=== PATIENT | female | born 1950 | race African-American/Black ===

== ENCOUNTER 2017-10-14 11:04 | Outpatient (CLI) | payer BC | END 2017-10-14 11:05 | disposition home or self-care (01) | LOC: BICRAD 11:04 | PROVIDERS: ATTEND Internal Medicine Endocrinology, Diabetes & Metabolism | DX: M79.662 Pain in left lower leg (principal); M79.661 Pain in right lower leg; W19.XXXA Unspecified fall, initial encounter ==

== ENCOUNTER 2017-10-19 19:00 | Outpatient (CLI) | payer BC | END 2017-10-19 19:01 | disposition home or self-care (01) | LOC: SLEEPLAB 19:00 | PROVIDERS: ATTEND Family Medicine | DX: G47.33 Obstructive sleep apnea (adult) (pediatric) (principal); I10 Essential (primary) hypertension; E11.9 Type 2 diabetes mellitus without complications | CPT/HCPCS: 95806 ==

== ENCOUNTER 2018-04-20 10:53 | Outpatient (CLI) | payer MEDICARE | END 2018-04-20 10:54 | disposition home or self-care (01) | LOC: BICMAMMO 10:53 | PROVIDERS: ATTEND Specialist | DX: N63.10 Unspecified lump in the right breast, unspecified quadrant (principal); N64.59 Other signs and symptoms in breast; N64.4 Mastodynia; R92.1 Mammographic calcification found on diagnostic imaging of breast | CPT/HCPCS: 19083; 76642; 77065; 88305; G0279 ==

== ENCOUNTER 2019-06-01 09:51 | Outpatient (CLI) | payer MEDICARE ==
--- NOTE | 2019-06-01 11:44 | BD ---
DEXA BONE DENSITY STUDY: Date: 06/01/19 HISTORY: Postmenopausal. FINDINGS: Lumbar Spine: BMD (g/cm2) L1 0.789 T-Score: -1.8 L2 0.889 T-Score: -1.3 L3 0.934 T-Score: -1.4 L4 0.936 T-Score: -1.1 Total 0.894 T-Score: -1.4 Left Femoral Neck: 0.698 T-Score: -1.4 Total Femur: 0.821 T-Score: -1.0 IMPRESSION: 1. Osteopenia of the lumbar spine and left femoral neck. 2. 10 year fracture risk for major osteoporotic fracture is 4.2% and for a hip fracture is 0.5%. The se fracture probabilities are calculated for an untreated patient. POS: [facility]
== END 2019-06-01 09:52 | disposition home or self-care (01) ==
LOC: BICMAMMO 09:51
PROVIDERS: ATTEND Family Medicine
DX: M81.0 Age-related osteoporosis without current pathological fracture (principal); M85.89 Other specified disorders of bone density and structure, multiple sites
CPT/HCPCS: 77080

== ENCOUNTER 2021-04-11 18:15 | Emergency (ER) | payer MEDICARE ==
[2021-04-11] MEDS ORDERED: Carvedilol 25 MG TAB PO SCH (21:00)
[2021-04-11] MEDS ORDERED: Amlodipine 5 MG TAB ONE (21:45)
== END 2021-04-11 22:15 | disposition home or self-care (01) ==
LOC: ERS 18:15
DX: S60.032A Contusion of left middle finger without damage to nail, initial encounter (principal); E11.9 Type 2 diabetes mellitus without complications; I10 Essential (primary) hypertension; Z79.84 Long term (current) use of oral hypoglycemic drugs; Z79.899 Other long term (current) drug therapy; W57.XXXA Bitten or stung by nonvenomous insect and other nonvenomous arthropods, initial encounter; M79.89 Other specified soft tissue disorders

== ENCOUNTER 2021-11-25 13:16 | Outpatient (CLI) | payer MEDICARE | END 2021-11-25 13:17 | disposition home or self-care (01) | LOC: BICMAMMO 13:16 | PROVIDERS: ATTEND Family Medicine | DX: Z12.31 Encounter for screening mammogram for malignant neoplasm of breast (principal); Z85.3 Personal history of malignant neoplasm of breast | CPT/HCPCS: 77063; 77067 ==

== ENCOUNTER 2022-10-13 13:24 | Outpatient (CLI) | payer MEDICARE ==
[~2022-10-13 13:24] MED LIST: Iopamidol 370 76% 100 ML VIAL ONE
== END 2022-10-13 13:25 | disposition home or self-care (01) ==
LOC: BICCT 13:24
PROVIDERS: ATTEND Family Medicine
DX: R10.32 Left lower quadrant pain (principal); K57.30 Diverticulosis of large intestine without perforation or abscess without bleeding; N28.89 Other specified disorders of kidney and ureter; N32.89 Other specified disorders of bladder
CPT/HCPCS: 74177

== ENCOUNTER 2023-06-11 14:35 | Outpatient (CLI) | payer MEDICARE | END 2023-06-11 14:36 | disposition home or self-care (01) | LOC: BICMRI 14:35 | PROVIDERS: ATTEND Family Medicine | DX: M51.16 Intervertebral disc disorders with radiculopathy, lumbar region (principal) | CPT/HCPCS: 72148 ==

== ENCOUNTER 2023-12-01 14:38 | Outpatient (CLI) | payer MEDICARE | END 2023-12-01 14:39 | disposition home or self-care (01) | LOC: BICMAMMO 14:38 | PROVIDERS: ATTEND Family Medicine | DX: Z12.31 Encounter for screening mammogram for malignant neoplasm of breast (principal); Z91.89 Other specified personal risk factors, not elsewhere classified | CPT/HCPCS: 77063; 77067 ==

== ENCOUNTER 2024-10-19 17:54 | Inpatient (IN) | payer MEDICARE ==
[2024-10-19] MEDS ORDERED: Ondansetron PF 4 MG/2 ML Vial ONE (18:31)
[2024-10-19 18:37] LABS: #Basophils 0.06 10x3/uL (0.0-0.2); %Basophils 0.8 % (0.0-1.0); %Lymphocytes 31.4 % (21.0-51.0); %Monocytes 7.5 % (0.0-10.0); %Neutrophils 58.9 % (42.0-75.0); Hematocrit 37.5 % (36.0-47.0); Mean Corpuscular Hemoglobin 25.5 pg (27.0-31.0); Mean Corpuscular Volume 79.6 fL (78.0-98.0); Mean Platelet Volume 9.4 fL (7.4-10.4); Platelet Count 359 10x3/uL (130-400); RBC Distribution Width 13.9 % (11.5-14.5); Red Blood Cell (RBC) Count 4.71 mill/uL (4.20-5.40)
[2024-10-19 18:52] LABS: ALT (SGPT) 8 U/L (8-55); AST (SGOT) 14 U/L (5-34); Albumin 3.6 g/dL (3.4-4.8); Alkaline Phosphatase 129 U/L (40-110); Anion Gap 13 mmol/L (10-20); BUN (Urea Nitrogen) 19 mg/dL (9.8-20.1); Bilirubin, Total 0.5 mg/dL (0.2-1.2); Calc. Creatinine Clearance 0 mL/min (70-130); Calcium 9.4 mg/dL (7.8-10.44); Carbon Dioxide 23 mmol/L (23-31); Chloride 105 mmol/L (98-107); Estimated GFR 36; Globulin 3.7 g/dL (2.4-3.5); Glucose 130 mg/dL (83-110); Potassium 4.2 mmol/L (3.5-5.1); Protein, Total 7.3 g/dL (5.8-8.1); Sodium 137 mmol/L (136-145)
[2024-10-19 18:55] LABS: Troponin I Less than 0.010 ng/mL (< 0.028)
[2024-10-19] MEDS ORDERED: Calcium Carbonate 500 MG ChewTAB PO PRN (22:07)
[2024-10-19] MEDS ORDERED: Ondansetron PF 4 MG/2 ML Vial IVP PRN (22:07)
[2024-10-19] MEDS ORDERED: Ondansetron ODT 4 MG TAB PO PRN (22:07)
[2024-10-19] MEDS ORDERED: Acetaminophen 650 MG Suppository PR PRN (22:07)
[2024-10-19 22:47] VITALS: BMI 25.5
[2024-10-20] MEDS: Melatonin 3 MG TAB PO PRN (01:21)
[2024-10-20 04:21] LABS: #Basophils 0.05 10x3/uL (0.0-0.2); %Basophils 0.4 % (0.0-1.0); %Eosinophils 0.7 % (0.0-10.0); %Monocytes 5.4 % (0.0-10.0); %Neutrophils 71.1 % (42.0-75.0); Hematocrit 35.3 % (36.0-47.0); Mean Corpuscular HGB CONC 31.2 g/dL (32.0-36.0); Mean Corpuscular Hemoglobin 25.6 pg (27.0-31.0); Mean Corpuscular Volume 82.3 fL (78.0-98.0); Mean Platelet Volume 9.4 fL (7.4-10.4); Platelet Count 344 10x3/uL (130-400); RBC Distribution Width 14.1 % (11.5-14.5); Red Blood Cell (RBC) Count 4.29 mill/uL (4.20-5.40)
[2024-10-20 04:44] LABS: Anion Gap 12 mmol/L (10-20); BUN (Urea Nitrogen) 17 mg/dL (9.8-20.1); Calc. Creatinine Clearance 48 mL/min (70-130); Carbon Dioxide 22 mmol/L (23-31); Chloride 109 mmol/L (98-107); Estimated GFR 53; Glucose 120 mg/dL (83-110); Potassium 3.6 mmol/L (3.5-5.1); Sodium 139 mmol/L (136-145)
[2024-10-20] MEDS: Famotidine 20 MG TAB PO SCH (08:39)
[2024-10-20] MEDS: Famotidine/PF 20 mg/2ml Vial SLOW IVP SCH (08:39)
[2024-10-20] MEDS: Meclizine HCl 25 MG TAB PO SCH ×2 (17:06→21:36)
[2024-10-20] MEDS: Sodium Chloride 0.9% 1,000 ML IV SCH (17:06)
[2024-10-20] MEDS: Carvedilol 25 MG TAB PO SCH (21:36)
[2024-10-20] MEDS: hydrALAZINE 25 MG TAB PO SCH (21:36)
[2024-10-21 05:59] LABS: #Basophils 0.05 10x3/uL (0.0-0.2); %Basophils 0.8 % (0.0-1.0); %Eosinophils 1.7 % (0.0-10.0); %Lymphocytes 39.8 % (21.0-51.0); %Monocytes 7.1 % (0.0-10.0); %Neutrophils 50.4 % (42.0-75.0); Hematocrit 36.2 % (36.0-47.0); Hemoglobin 11.2 g/dL (12.0-16.0); Mean Corpuscular HGB CONC 30.9 g/dL (32.0-36.0); Mean Corpuscular Hemoglobin 25.5 pg (27.0-31.0); Mean Corpuscular Volume 82.3 fL (78.0-98.0); Mean Platelet Volume 9.5 fL (7.4-10.4); Platelet Count 326 10x3/uL (130-400); RBC Distribution Width 14.2 % (11.5-14.5)
[2024-10-21 06:26] LABS: Anion Gap 9 mmol/L (10-20); BUN (Urea Nitrogen) 17 mg/dL (9.8-20.1); Calc. Creatinine Clearance 47 mL/min (70-130); Calcium 9.6 mg/dL (7.8-10.44); Carbon Dioxide 26 mmol/L (23-31); Chloride 111 mmol/L (98-107); Estimated GFR 51; Glucose 92 mg/dL (83-110); Potassium 4.4 mmol/L (3.5-5.1); Sodium 142 mmol/L (136-145)
[2024-10-21] MEDS: Valsartan 80 MG TAB PO SCH (08:54)
[2024-10-21] MEDS: Amlodipine 5 MG TAB PO SCH (12:21)
[2024-10-21] MEDS: hydrALAZINE 20 MG/ML VIAL SLOW IVP SCH (12:21)
[2024-10-21] MEDS ORDERED: Melatonin 3 MG TAB PO PRN (14:06)
[2024-10-21] MEDS: Senokot S 8.6-50 MG TAB PO SCH ×2 (14:53→20:14)
[2024-10-21] MEDS: Cinacalcet HCl 30 MG TAB PO SCH (14:53)
[2024-10-21] MEDS: Polyethylene Glycol 3350 17 GM Packet PO SCH (14:54)
[2024-10-21] MEDS: Acetaminophen 325 MG TAB PO PRN (16:43)
[2024-10-21] MEDS: Simvastatin 10 MG TAB PO SCH (20:13)
[2024-10-22] MEDS: Cinacalcet HCl 30 MG TAB PO SCH (09:14)
[2024-10-22] MEDS: Cyanocobalamin (Vitamin B-12) 1,000 MCG TAB PO SCH (09:15)
[2024-10-22] MEDS: Famotidine 20 MG TAB PO SCH (09:15)
[2024-10-22] MEDS: Cholecalciferol 1,000 UNITS (25 MCG) TAB PO SCH (09:15)
[2024-10-22] MEDS: Polyethylene Glycol 3350 17 GM Packet PO SCH (09:15)
[2024-10-22] MEDS: Amlodipine 5 MG TAB PO SCH (09:15)
[2024-10-22] MEDS: Famotidine/PF 20 mg/2ml Vial SLOW IVP SCH (09:16)
[2024-10-22 10:19] LABS: #Basophils 0.07 10x3/uL (0.0-0.2); %Basophils 1.1 % (0.0-1.0); %Eosinophils 1.6 % (0.0-10.0); %Lymphocytes 28.8 % (21.0-51.0); %Monocytes 6.4 % (0.0-10.0); %Neutrophils 61.8 % (42.0-75.0); Hemoglobin 11.6 g/dL (12.0-16.0); Mean Corpuscular HGB CONC 31.4 g/dL (32.0-36.0); Mean Corpuscular Hemoglobin 25.7 pg (27.0-31.0); Mean Platelet Volume 9.3 fL (7.4-10.4); Platelet Count 328 10x3/uL (130-400); RBC Distribution Width 14.3 % (11.5-14.5); Red Blood Cell (RBC) Count 4.51 mill/uL (4.20-5.40)
[2024-10-22 11:09] LABS: Anion Gap 12 mmol/L (10-20); BUN (Urea Nitrogen) 16 mg/dL (9.8-20.1); Calc. Creatinine Clearance 55 mL/min (70-130); Calcium 9.9 mg/dL (7.8-10.44); Carbon Dioxide 25 mmol/L (23-31); Chloride 106 mmol/L (98-107); Estimated GFR 62; Glucose 71 mg/dL (83-110); Magnesium 1.8 mg/dL (1.6-2.6); Potassium 3.8 mmol/L (3.5-5.1); Sodium 139 mmol/L (136-145)
[2024-10-22] MEDS: hydrALAZINE 20 MG/ML VIAL SLOW IVP PRN (12:38)
[2024-10-23 08:31] VITALS: BP 158/72; TEMP 98.1
[2024-10-23] MEDS: Amlodipine 10 MG TAB PO SCH (10:44)
== END 2024-10-23 13:00 | disposition home or self-care (01) | DRG 641 ==
LOC: ERS 17:54 → ERHOLD 21:41 → 2NO 23:47 → OBSVTOIN 10-20 16:17
PROVIDERS: ADMIT Student in an Organized Health Care Education/Training Program; ATTEND Student in an Organized Health Care Education/Training Program
DX: E86.0 Dehydration (principal); N17.9 Acute kidney failure, unspecified; G37.9 Demyelinating disease of central nervous system, unspecified; E86.9 Volume depletion, unspecified; I10 Essential (primary) hypertension; E11.9 Type 2 diabetes mellitus without complications; E78.5 Hyperlipidemia, unspecified; Z90.710 Acquired absence of both cervix and uterus; Z90.89 Acquired absence of other organs; Z79.899 Other long term (current) drug therapy; Z79.890 Hormone replacement therapy
CPT/HCPCS: 36415; 70551; 71045; 80048; 80053; 83605; 83735; 84484; 85025; 93005; 93880; 96361; 96374; G0378; J0360; J2405; J7030

== ENCOUNTER 2024-12-15 13:51 | Outpatient (CLI) | payer MEDICARE | END 2024-12-15 13:52 | disposition home or self-care (01) | LOC: BICMAMMO 13:51 | PROVIDERS: ATTEND Family Medicine | DX: M81.0 Age-related osteoporosis without current pathological fracture (principal); M85.851 Other specified disorders of bone density and structure, right thigh; M85.852 Other specified disorders of bone density and structure, left thigh | CPT/HCPCS: 77080 ==

== ENCOUNTER 2025-07-04 17:28 | Observation (INO) | payer MEDICARE ==
[2025-07-04 18:12] LABS: #Basophils 0.03 10x3/uL (0.0-0.2); #Eosinophils 0.10 10x3/uL (0.0-0.7); #Monocytes 0.45 10x3/uL (0.11-0.59); #Neutrophils 3.69 10x3/uL (1.40-6.50); %Basophils 0.5 % (0.0-1.0); %Eosinophils 1.6 % (0.0-10.0); %Lymphocytes 31.4 % (21.0-51.0); %Monocytes 7.2 % (0.0-10.0); %Neutrophils 59.0 % (42.0-75.0); Hematocrit 42.7 % (36.0-47.0); Hemoglobin 13.3 g/dL (12.0-16.0); Mean Corpuscular Hemoglobin 25.4 pg (27.0-31.0); Mean Corpuscular Volume 81.5 fL (78.0-98.0); Platelet Count 267 10x3/uL (130-400); Red Blood Cell (RBC) Count 5.24 mill/uL (4.20-5.40); White Blood Cell (WBC) Count 6.25 10x3/uL (4.8-10.8)
[2025-07-04 18:26] LABS: ALT (SGPT) 7 U/L (Less than 34); AST (SGOT) 15 U/L (11-34); Albumin 3.8 g/dL (3.1-4.5); Alkaline Phosphatase 162 U/L (40-110); Anion Gap 14 mmol/L (10-20); BUN (Urea Nitrogen) 11 mg/dL (9.8-20.1); Bilirubin, Total 0.7 mg/dL (0.3-1.2); Calc. Creatinine Clearance 0 mL/min (70-130); Calcium 9.2 mg/dL (7.8-10.44); Carbon Dioxide 24 mmol/L (23-31); Chloride 107 mmol/L (98-107); Globulin 3.4 g/dL (2.4-3.5); Glucose 150 mg/dL (83-110); Potassium 4.1 mmol/L (3.5-5.1); Sodium 141 mmol/L (136-145)
[2025-07-04] MEDS ORDERED: Dextrose 50% Abboject 50 ML SYRINGE SLOW IVP PRN (20:58)
[2025-07-04] MEDS ORDERED: Acetaminophen 325 MG TAB PO PRN (20:58)
[2025-07-04] MEDS ORDERED: Glucagon 1 MG/ML KIT IM PRN (20:58)
[2025-07-04] MEDS ORDERED: Ondansetron PF 4 MG/2 ML Vial IVP PRN (20:58)
[2025-07-04 23:28] VITALS: BMI 26.3
[2025-07-05 04:39] LABS: #Basophils 0.05 10x3/uL (0.0-0.2); #Eosinophils 0.12 10x3/uL (0.0-0.7); #Monocytes 0.70 10x3/uL (0.11-0.59); #Neutrophils 5.33 10x3/uL (1.40-6.50); %Basophils 0.6 % (0.0-1.0); %Eosinophils 1.4 % (0.0-10.0); %Lymphocytes 27.4 % (21.0-51.0); %Monocytes 8.2 % (0.0-10.0); %Neutrophils 62.1 % (42.0-75.0); Hematocrit 37.9 % (36.0-47.0); Hemoglobin 11.5 g/dL (12.0-16.0); Mean Corpuscular Hemoglobin 24.9 pg (27.0-31.0); Mean Corpuscular Volume 82.0 fL (78.0-98.0); Platelet Count 257 10x3/uL (130-400); Red Blood Cell (RBC) Count 4.62 mill/uL (4.20-5.40); White Blood Cell (WBC) Count 8.58 10x3/uL (4.8-10.8)
[2025-07-05 04:50] LABS: Anion Gap 11 mmol/L (10-20); BUN (Urea Nitrogen) 15 mg/dL (9.8-20.1); Calc. Creatinine Clearance 42 mL/min (70-130); Calcium 8.8 mg/dL (7.8-10.44); Carbon Dioxide 25 mmol/L (23-31); Chloride 107 mmol/L (98-107); Glucose 86 mg/dL (83-110); Potassium 3.7 mmol/L (3.5-5.1); Sodium 139 mmol/L (136-145)
[2025-07-05] MEDS ORDERED: Carvedilol 25 MG TAB PO SCH (08:00)
[2025-07-05] MEDS ORDERED: Valsartan 80 MG TAB PO SCH (09:00)
[2025-07-05] MEDS: Valsartan 80 MG TAB PO SCH (09:07)
[2025-07-05] MEDS: Enoxaparin 40 MG (0.4 mL) SYRINGE SC SCH (09:07)
[2025-07-05] MEDS: Carvedilol 25 MG TAB PO SCH (09:07)
[2025-07-05 15:51] VITALS: TEMP 97.9
[2025-07-05] MEDS: hydrALAZINE 20 MG/ML VIAL SLOW IVP SCH (17:25)
[2025-07-05 17:36] VITALS: BP 162/79
[2025-07-05] MEDS ORDERED: Simvastatin 10 MG TAB PO SCH (21:00)
== END 2025-07-05 18:35 | disposition home or self-care (01) ==
LOC: ERS 17:28 → 2NO 19:52
PROVIDERS: ADMIT Internal Medicine; ATTEND Internal Medicine
PROC: B24BZZZ Ultrasonography of Heart with Aorta (ICD-10-PCS; principal; 2025-07-04)
DX: R55 Syncope and collapse (principal); N17.9 Acute kidney failure, unspecified; I11.0 Hypertensive heart disease with heart failure; I50.9 Heart failure, unspecified; E11.9 Type 2 diabetes mellitus without complications; Z88.8 Allergy status to other drugs, medicaments and biological substances; Z98.890 Other specified postprocedural states; Z79.899 Other long term (current) drug therapy
CPT/HCPCS: 80048; 80053; 82962 ×2; 83880; 84484; 85025 ×2; 93005; 93306; 94760; 96361; 96374; 99285; G0378 ×3; J0360; J7030; 36415; 36416; 96360; J1650